=== PATIENT | female | born 2000 | race Caucasian/White ===

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

== ENCOUNTER 2019-04-20 10:05 | Inpatient (IN) | payer OTHER ==
[~2019-04-20 10:05] MED LIST: ELECTROLYTE-148 SOLN 1,000 ML IV SCH
[2019-04-20] MEDS ORDERED: AMPICILLIN - 2 GM in SODIUM CHLORIDE 100 ML IVPB ONE ×2 (10:30→14:17)
[2019-04-20 11:02] VITALS: BMI 43.9
[2019-04-20 12:17] LABS: BASO % 0.3 % (0-2.0); EOS % 0.9 % (0-4.5); HEMATOCRIT 32.2 % (32.4-45.2); HEMOGLOBIN 10.4 GM/dL (10.7-15.3); LYMPH % 8.2 % (8-40); MCH 26.3 pg (25.7-33.7); MCHC 32.2 g/dl (32.0-36.0); MEAN CELL VOLUME 81.8 fl (80-96); MEAN PLT VOLUME 8.5 fl (7.5-11.1); MONO % 5.6 % (3.8-10.2); RBC 3.94 M/mm3 (3.60-5.2); WHITE BLOOD COUNT 13.9 K/mm3 (4.0-10.0)
[2019-04-20 12:30] LABS: INR 0.99 (0.83-1.09); PROTHROMBIN TIME (PATIENT) 11.7 SEC (9.7-13.0)
[2019-04-20 12:32] LABS: ACTIVATED PTT 27.7 SECONDS (25.2-36.5)
[2019-04-20 12:35] LABS: PLATELET COUNT 319 K/MM3 (134-434)
[2019-04-20 12:41] LABS: CALCIUM 8.7 mg/dL (8.5-10.1); CREATININE 0.6 mg/dL (0.55-1.3); POTASSIUM 4.1 mmol/L (3.5-5.1)
[2019-04-20] MEDS ORDERED: OXYTOCIN 30 UNITS in 0.9% NS 30 UNIT/500 ML INFUS.BAG IVPB ONE (14:09)
[2019-04-20] MEDS ORDERED: AMPICILLIN SODIUM 1 GM VIAL ONE ×3 (14:09→22:16)
[2019-04-20] MEDS ORDERED: BUTORPHANOL TARTRATE 1 MG/ML VIAL IVPB ONE (14:17)
[2019-04-20] MEDS ORDERED: PROMETHAZINE HCL 25 MG/1 ML VIAL IVPUSH ONE (14:17)
--- NOTE | 2019-04-20 14:17 | HP ---
Past Medical History - Primary Care Physician PCP:: Catrina Marques - Admission Chief Complaint: 18yo P0 @ 39wks with clear LOF since 8:30 this am, mild ctx, no VB, +FM History of Present Illness: 1. 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 GBS pos - for Ampicillin prophylaxis 3. 3tr GCT - 146; GTT - wnl 4. Morbid obesity - 60lb weight gain, EFW - 8lb, gynecoid pelvis History Source: Patient, Medical Record Limitations to Obtaining History: No Limitations - Past Medical History Pulmonary: Yes: Other (Exercise induced reactive aiway dz) ...: 1 ...Para: 0 ...Term: 0 ...: 0 ...Spon : 0 ...Induced : 0 ...Multiple Gestation: 0 ...EDC by [facility]: 04/27/19 Infectious Disease: Yes: STD's (HSV 2 Chlamydia 2014, 2016), Other (HSV) Psych: Yes: Anxiety, Depression Musculoskeletal: Yes: Other (fractures multiple : bl wrists, R foot, R finger) - Past Surgical History Past Surgical History: Yes: Appendectomy Hx Myomectomy: No Hx Transabdominal Cerclage: No Additional Surgical History: Tear duct surgery - Smoking History Smoking history: Never smoked Have you smoked in the past 12 months: No Aproximately how many cigarettes per day: 0 - Alcohol/Substance Use Hx Alcohol Use: No Home Medications - Allergies Allergies/Adverse Reactions: Allergies Allergy/AdvReac Type Severity Reaction Status Date / Time No Known Allergies Allergy Verified 04/20/19 11:08 - Home Medications Home Medications: Ambulatory Orders Valacyclovir HCl [Valtrex] 1 tab PO BID 04/20/19 Family Disease History - Family Disease History Family History: Unremarkable Review of Systems - Review of Systems Constitutional: reports: No Symptoms Eyes: reports: No Symptoms HENT: reports: No Symptoms Neck: reports: No Symptoms Cardiovascular: reports: No Symptoms Respiratory: reports: No Symptoms Gastrointestinal: reports: No Symptoms Genitourinary: reports: Other (Leackage of fluid) Breasts: reports: No Symptoms Reported Musculoskeletal: reports: No Symptoms Integumentary: reports: No Symptoms Neurological: reports: No Symptoms Endocrine: reports: No Symptoms Hematology/Lymphatic: reports: No Symptoms Psychiatric: reports: No Symptoms Physical Exam - Maternity Vital Signs: Vital Signs Temperature 98.2 F 04/20/19 13:00 Pulse Rate 96 H 04/20/19 13:00 Respiratory Rate 18 04/20/19 13:00 Blood Pressure 123/56 L 04/20/19 13:00 O2 Sat by Pulse Oximetry (%) Constitutional: Yes: Well Nourished, No Distress, Calm Eyes: Yes: WNL, Conjunctiva Clear HENT: Yes: WNL Neck: Yes: WNL Cardiovascular: Yes: WNL, Regular Rate and Rhythm Lungs: Clear to auscultation Breast(s): Yes: WNL - Abdominal Exam/OB Fundal Height: 41 (EFW 8lb) Number of Fetuses: Single Presentation: Vertex Contractions: Yes Regularity: Irregular Intensity: Mild Monitor Mode: External Heart Rate (range): 150's Heart Rate Location: Midline Category: I Accelerations: Uniform Decelerations: None - Vaginal Exam/OB Vaginal Bleediing: No Speculum Exam: Yes (Grosly ruptured, nitrosine pos, no vulva lesions noted) Dilatation (cm): 5 Effacement (%): 80 Amniotic Membrane Status: Ruptured (clear) Nitrazine Test: Positive Amniotic Fluid: Yes: Clear Presentation: Vertex/Position Station: -1 - Physical Exam Musculoskeletal: Yes: WNL Extremities: Yes: WNL Edema: No Integumentary: Yes: WNL Deep Tendon Reflex Grade: Normal +2 ...Motor Strength: WNL Psychiatric: Yes: WNL, Alert, Oriented - Labs Lab Results: CBC, BMP PNL: Bpos/NR/RI/HIV neg/ HBsAg neg 04/20/19 12:05 04/20/19 12:05 Assessment/Plan 18yo P0 @39wks with PROM advanced cervical dilation Admit to L&D IVF, Labs, NPO GBS prophylaxis with Ampicillin Start Pitocin to augment labor likely LGA fetus, gynecoid pelvis, will monitor progress of labor
[2019-04-20] MEDS: AMPICILLIN - 1 GM in SODIUM CHLORIDE 100 ML IVPB SCH ×3 (14:24→22:15)
[2019-04-20] MEDS ORDERED: ELECTROLYTE-148 SOLN 1,000 ML IV SCH (14:30)
[2019-04-20] MEDS ORDERED: OXYTOCIN 30 UNITS in 0.9% NS 30 UNIT/500 ML INFUS.BAG IVPB SCH (14:30)
[2019-04-20] MEDS ORDERED: DEXTROSE 5%-LACTATED RINGERS 1,000 ML IV SCH (14:30)
[2019-04-20] MEDS ORDERED: AMPICILLIN - 1 GM in SODIUM CHLORIDE 100 ML IVPB SCH (18:21)
--- NOTE | 2019-04-20 20:43 | PN ---
Progress Note, Labor Vaginal Exam #1 Labor Exam Date: 04/20/19 Labor Exam Time: 20:30 Heart Rate (range): 150's Category 1 Dilatation: 6 Effacement (%): 80 Amniotic Membrane Status: Ruptured (FOrewaters ruprured) Presentation: Vertex/Position Station: -1 (Reassuring MF status Epidural offered for pain)
[2019-04-20] MEDS ORDERED: FENTANYL/BUPIVACAINE/NS/PF - PCEA - 50 ML DISP.SYRIN EP ONE ×2 (21:04→21:05)
[2019-04-20] MEDS ORDERED: NALOXONE HCL 0.4 MG/ML VIAL IVPUSH PRN (21:08)
[2019-04-20] MEDS ORDERED: LIDO 2%/EPI 1:200000 PRESRVFRE (20 ML SDVIAL) ONE (21:11)
[2019-04-20] MEDS: FENTANYL/BUPIVACAINE/NS/PF - PCEA - 50 ML DISP.SYRIN EP SCH (21:15)
[2019-04-20] MEDS ORDERED: LIDOCAINE HCL 1% PRESERVATIVE FREE - 30ML VIAL ONE (23:18)
[2019-04-20] MEDS ORDERED: OXYTOCIN 20 UNITS in 0.9% NS 20 UNIT/1,000 ML INFUS.BAG IV ONE (23:18)
--- NOTE | 2019-04-20 23:24 | PN ---
Progress Note, Labor Vaginal Exam #2 Labor Exam Date: 04/20/19 Labor Exam Time: 23:00 Heart Rate (range): 150's Dilatation: FD Effacement (%): 100 Amniotic Membrane Status: Ruptured Presentation: Vertex/Position Station: +2 Remarks: Will start 2nd stage MF status reassuring LGA fetus stepping stool in the room Shoulder precautions reviewed with the nurse
[2019-04-21] MEDS ORDERED: OXYTOCIN 20 UNITS in 0.9% NS 20 UNIT/1,000 ML INFUS.BAG IV SCH
[2019-04-21] MEDS ORDERED: WITCH HAZEL 50% (TUCKS) 40 PAD/JAR PAD TP PRN (00:18)
[2019-04-21] MEDS ORDERED: METHYLERGONOVINE MALEATE 0.2 MG/1 ML AMP IM PRN (00:18)
[2019-04-21] MEDS ORDERED: BISACODYL 10 MG SUPP.RECT RC PRN (00:18)
[2019-04-21] MEDS ORDERED: BENZOCAINE 28 GM HEMORRHOIDAL OINTMENT TP PRN (00:18)
[2019-04-21] MEDS ORDERED: BENZOCAINE 20% 57 GM BOTTLE TP PRN (00:18)
--- NOTE | 2019-04-21 00:22 | PN ---
Delivery - Delivery Vaginal Delivery: No Problems Type of Anesthesia: Local, Epidural Episiotomy/Laceration: Midline EBL (cc): 400 Delivery, Single - Stages of Labor Date 1st Stage Initiatied: 04/20/19 Date 2nd Stage Initiated: 04/20/19 Time 2nd Stage Initiated: 23:30 Date of Delivery: 04/20/19 Time of Delivery: 23:55 Date Placenta Delivered: 04/20/19 Time Placenta Delivered: 23:59 Placenta: Yes: Spontaneous - Condition of Cognos Architect/Director Check Present: No Infant Gender: Male Weight: 8 lb 12 oz Position: Left, OA - 1 Minute Total Score: 9 5 Minutes Total Score: 9 - Feeding Plan Initial Plan: Exclusive throughout hospitalization Benefits of Exclusively reinforced: Yes Remarks - Remarks Remarks: uncomplicated delivery of head and shoulders
[2019-04-21] MEDS ORDERED: D5W-LR W/ 20 UNITS OXYTOCIN 1,000 ML IV SCH ×2 (00:30→01:45)
[2019-04-21 00:44] LABS: ARTERIAL BLD GAS O2 SATURATION 21.3 % (95-98); ARTERIAL BLOOD GAS PCO2 59.2 mmHg (35-45); ARTERIAL BLOOD GAS pH 7.26 (7.35-7.45)
[2019-04-21 00:46] LABS: VENOUS PC02 43.3 mmHg (41-51); VENOUS PH 7.34 (7.31-7.41); VENOUS PO2 30.3 mmHg (30-40)
[2019-04-21 01:09] LABS: ARTERIAL BLOOD GAS PO2 16.2 mmHg (80-105)
[2019-04-21] MEDS ORDERED: IBUPROFEN 600 MG TABLET (FP) PO ONE (01:59)
[2019-04-21] MEDS ORDERED: ACETAMINOPHEN 325 MG TABLET (FP) ONE (01:59)
[2019-04-21] MEDS: IBUPROFEN 600 MG TABLET (FP) PO PRN ×4 (02:03→21:36)
[2019-04-21] MEDS: ACETAMINOPHEN 325 MG TABLET (FP) PO PRN ×4 (02:04→21:35)
[2019-04-21] MEDS: AMPICILLIN - 1 GM in SODIUM CHLORIDE 100 ML IVPB SCH (03:51)
--- NOTE | 2019-04-21 07:51 | PN ---
Post Progress Note - Subjective Subjective: Patient without acute complaints. Reports tolerating oral intake without nausea or vomiting. Ambulating without dizziness. Denies fevers or chills. Pain well controlled with oral pain medication. without difficulty. Passing flatus. Post Day: 1 Type of Delivery: Vital Signs: Vital Signs Temperature 98.1 F 04/21/19 06:00 Pulse Rate 105 H 04/21/19 06:00 Respiratory Rate 18 04/21/19 06:00 Blood Pressure 128/64 04/21/19 06:00 O2 Sat by Pulse Oximetry (%) 100 04/21/19 01:00 Breast Exam: Yes: Soft Uterus: Yes: Fundus Firm Abdomen/GI: Yes: Abdomen soft Lochia: Yes: Rubra Lochia, amount: Small Extremities: Yes: Calves non-tender Perineum: Yes: Intact Activity: Ambulating - Labs Labs: CBC WBC 13.9 K/mm3 (4.0-10.0) H 04/20/19 12:05 RBC 3.94 M/mm3 (3.60-5.2) 04/20/19 12:05 Hgb 10.4 GM/dL (10.7-15.3) L 04/20/19 12:05 Hct 32.2 % (32.4-45.2) L D 04/20/19 12:05 MCV 81.8 fl (80-96) 04/20/19 12:05 MCH 26.3 pg (25.7-33.7) D 04/20/19 12:05 MCHC 32.2 g/dl (32.0-36.0) 04/20/19 12:05 RDW 15.0 % (11.6-15.6) D 04/20/19 12:05 Plt Count 319 K/MM3 (134-434) 04/20/19 12:05 MPV 8.5 fl (7.5-11.1) 04/20/19 12:05 Absolute Neuts (auto) 11.9 K/mm3 (1.5-8.0) H 04/20/19 12:05 Neutrophils % 85.0 % (42.8-82.8) H 04/20/19 12:05 Lymphocytes % 8.2 % (8-40) D 04/20/19 12:05 Monocytes % 5.6 % (3.8-10.2) 04/20/19 12:05 Eosinophils % 0.9 % (0-4.5) 04/20/19 12:05 Basophils % 0.3 % (0-2.0) 04/20/19 12:05 Nucleated RBC % 0 % (0-0) 04/20/19 12:05 Assessment/Plan 18yo P 1 s/p Doing well VSS, Afebrile encourage ambulation follow H/H Rh positive, no need for RhoGam cont. routine care
[2019-04-21] MEDS: PRENATAL VITAMINS W/ FOLIC ACID TABLET (FP) PO SCH (09:02)
[2019-04-21] MEDS: FERROUS SO4 325 MG TABLET (FP) PO SCH ×2 (09:02→17:52)
[2019-04-21 09:50] LABS: EOS % 0.6 % (0-4.5)
[2019-04-21 10:01] LABS: BASO % 0.2 % (0-2.0); HEMATOCRIT 25.8 % (32.4-45.2); HEMOGLOBIN 8.1 GM/dL (10.7-15.3); LYMPH % 10.1 % (8-40); MCHC 31.3 g/dl (32.0-36.0); MEAN CELL VOLUME 83.2 fl (80-96); MEAN PLT VOLUME 9.3 fl (7.5-11.1); MONO % 6.8 % (3.8-10.2); NEUT % 82.3 % (42.8-82.8); RDW 14.6 % (11.6-15.6); WHITE BLOOD COUNT 11.6 K/mm3 (4.0-10.0)
[2019-04-21 10:03] LABS: PLATELET COUNT 258 K/MM3 (134-434)
[2019-04-21 12:04] LABS: COCAINE, UR NEGATIVE ng/ml (CUTOFF=300); METHADONE, UR NEGATIVE ng/ml (CUTOFF=300); OPIATES, URI NEGATIVE ng/ml (CUTOFF=300); PHENCYCLIDINE,URINE NEGATIVE ng/ml (CUTOFF=25); URINE AMPHETAMINES NEGATIVE ng/ml (CUTOFF=500); URINE BARBITURATES NEGATIVE ng/ml (CUTOFF=200); URINE BENZODIAZEPINES NEGATIVE ng/ml (CUTOFF=200)
[2019-04-22] MEDS: IBUPROFEN 600 MG TABLET (FP) PO PRN ×3 (06:10→17:53)
[2019-04-22] MEDS: ACETAMINOPHEN 325 MG TABLET (FP) PO PRN ×3 (06:10→17:54)
[2019-04-22] MEDS: FENTANYL/BUPIVACAINE/NS/PF - PCEA - 50 ML DISP.SYRIN EP SCH (07:16)
[2019-04-22 07:49] LABS: BASO % 0.3 % (0-2.0); EOS % 3.4 % (0-4.5); HEMOGLOBIN 8.1 GM/dL (10.7-15.3); LYMPH % 19.2 % (8-40); MCH 26.9 pg (25.7-33.7); MCHC 32.4 g/dl (32.0-36.0); MEAN CELL VOLUME 82.8 fl (80-96); MEAN PLT VOLUME 9.1 fl (7.5-11.1); MONO % 8.2 % (3.8-10.2); NEUT % 68.9 % (42.8-82.8); PLATELET COUNT 229 K/MM3 (134-434); RBC 3.02 M/mm3 (3.60-5.2); RDW 14.9 % (11.6-15.6); WHITE BLOOD COUNT 9.4 K/mm3 (4.0-10.0)
[2019-04-22] MEDS: FERROUS SO4 325 MG TABLET (FP) PO SCH ×2 (09:18→17:48)
[2019-04-22] MEDS: PRENATAL VITAMINS W/ FOLIC ACID TABLET (FP) PO SCH (09:18)
--- NOTE | 2019-04-22 15:10 | DS ---
Physical Exam-ZOO DIRECTOR Vital Signs: Vital Signs Temperature 98.1 F 04/22/19 10:00 Pulse Rate 100 H 04/22/19 10:00 Respiratory Rate 20 04/22/19 10:00 Blood Pressure 120/77 04/22/19 10:00 O2 Sat by Pulse Oximetry (%) 100 04/21/19 01:00 Constitutional: Yes: Well Nourished, No Distress, Calm Labs: CBC, BMP 04/22/19 06:54 04/20/19 12:05 Delivery - Delivery Vaginal Delivery: No Problems Type of Anesthesia: Local, Epidural Episiotomy/Laceration: Midline EBL (cc): 400 Delivery, Single - Stages of Labor Date 1st Stage Initiatied: 04/21/19 Time 1st Stage Initiated: 08:30 Date 2nd Stage Initiated: 04/21/19 Time 2nd Stage Initiated: 23:30 Date of Delivery: 04/21/19 Time of Delivery: 23:55 Time Placenta Delivered: 23:59 Placenta: Yes: Spontaneous - Condition of Mixer Runner/Booky Present: No Gender: Male Weight: 8 lb 12 oz Position: Left, OA Total Hours ROM (Hrs/Mins): 15h 25m - 1 Minute Total Score: 9 5 Minutes Total Score: 9 - Feeding Plan Initial Plan: Exclusive throughout hospitalization Benefits of Exclusively reinforced: Yes Discharge Summary Reason For Visit: LABOR ADMIT Condition: Good - Instructions Diet, Activity, Other Instructions: Physical activity Resume your normal everyday activity as tolerated no heavy lifting or exercise until seen by your surgeon. You may walk unlimited aminah of and climb stairs. You may resume driving the car when you feel safe and comfortable behind the wheel. No sexual activity as instructed. Wound care If you have a bandage, leave it on, and keep dry for 48-72 hours. After that time discard the outer bandage. If they are tapes on the skin under the out of bandage leave them in place. They will peel off in the next 7 to 10 days. Do Not Peel them off. You may shower the day after surgery. If there are tapes present on the skin, you may shower over them. Diet There are no dietary restrictions. Eat healthy, high-fiber foods. Drink 6 to 8 glasses of liquid each day. This will assist in keeping your bowels are regular. Pain management You may take Tylenol or acetaminophen or Ibuprofen (for example, Motrin, Advil etc.) from my pain prescription medication is ordered should be taken as prescribed for moderate to severe pain. Call MD for any of the following: Severe pain not relieved by medication Fever of 101 or higher Excessive bleeding or drainage on dressing Inability to urinate Referrals: Shaun Warner MD [Staff Physician] - Disposition: HOME - Home Medications Comprehensive Discharge Medication List: Ambulatory Orders Valacyclovir HCl [Valtrex] 1 tab PO BID 04/20/19 Ibuprofen [Motrin -] 600 mg PO QID #28 tablet 04/22/19
--- NOTE | 2019-04-22 19:35 | DS ---
Physical Exam-RESEARCH ANIMAL ATTENDANT Vital Signs: Vital Signs Temperature 98.1 F 04/22/19 10:00 Pulse Rate 100 H 04/22/19 10:00 Respiratory Rate 20 04/22/19 10:00 Blood Pressure 120/77 04/22/19 10:00 O2 Sat by Pulse Oximetry (%) 100 04/21/19 01:00 Constitutional: Yes: Well Nourished, No Distress, Calm Eyes: Yes: WNL HENT: Yes: WNL, Atraumatic, Normocephalic Neck: Yes: WNL, Supple, Trachea Midline Cardiovascular: Yes: WNL, Regular Rate and Rhythm Respiratory: Yes: WNL, Regular, CTA Bilaterally Gastrointestinal: Yes: WNL, Normal Bowel Sounds, Soft ...Rectal Exam: Yes: WNL Renal/: Yes: WNL Pelvis: Yes: WNL External Genitalia: Yes: Normal Vaginal Exam: Yes: Normal Cervix: Yes: Normal Uterus: Yes: Normal ....Post : Yes: Uterus firm, Uterus non-tender Breast(s): Yes: WNL Musculoskeletal: Yes: WNL Extremities: Yes: WNL Edema: No Integumentary: Yes: WNL Neurological: Yes: WNL, Alert, Oriented ...Motor Strength: WNL Psychiatric: Yes: WNL, Alert, Oriented Labs: CBC, BMP 04/22/19 06:54 04/20/19 12:05 Delivery - Delivery Vaginal Delivery: No Problems Type of Anesthesia: Local, Epidural Episiotomy/Laceration: Midline EBL (cc): 400 Delivery, Single - Stages of Labor Date 1st Stage Initiatied: 04/20/19 Time 1st Stage Initiated: 08:30 Date 2nd Stage Initiated: 04/20/19 Time 2nd Stage Initiated: 23:30 Date of Delivery: 04/20/19 Time of Delivery: 23:55 Date Placenta Delivered: 04/20/19 Time Placenta Delivered: 23:59 Placenta: Yes: Spontaneous - Condition of Manager Purchasing/Mortgage Loan Officer Present: No Infant Gender: Male Weight: 8 lb 12 oz Position: Left, OA Total Hours ROM (Hrs/Mins): 15h 25m - 1 Minute Total Score: 9 5 Minutes Total Score: 9 - Feeding Plan Initial Plan: Exclusive throughout hospitalization Benefits of Exclusively reinforced: Yes Remarks - Remarks Remarks: uncomplicated delivery of head and shoulders Discharge Summary Reason For Visit: LABOR ADMIT Condition: Good - Instructions Diet, Activity, Other Instructions: Physical activity Resume your normal everyday activity as tolerated no heavy lifting or exercise until seen by your surgeon. You may walk unlimited aminah of and climb stairs. You may resume driving the car when you feel safe and comfortable behind the wheel. No sexual activity as instructed. Wound care If you have a bandage, leave it on, and keep dry for 48-72 hours. After that time discard the outer bandage. If they are tapes on the skin under the out of bandage leave them in place. They will peel off in the next 7 to 10 days. Do Not Peel them off. You may shower the day after surgery. If there are tapes present on the skin, you may shower over them. Diet There are no dietary restrictions. Eat healthy, high-fiber foods. Drink 6 to 8 glasses of liquid each day. This will assist in keeping your bowels are regular. Pain management You may take Tylenol or acetaminophen or Ibuprofen (for example, Motrin, Advil etc.) from my pain prescription medication is ordered should be taken as prescribed for moderate to severe pain. Call MD for any of the following: Severe pain not relieved by medication Fever of 101 or higher Excessive bleeding or drainage on dressing Inability to urinate Referrals: Shaun Warner MD [Staff Physician] - Disposition: HOME - Home Medications Comprehensive Discharge Medication List: Ambulatory Orders Valacyclovir HCl [Valtrex] 1 tab PO BID 04/20/19 Ibuprofen [Motrin -] 600 mg PO QID #28 tablet 04/22/19
[2019-04-22 20:40] VITALS: BP 120/91; PULSE 103; TEMP 97.9
[2019-04-22] MEDS ORDERED: SENNOSIDES/DOCUSATE COMBO (SENNA PLUS) TABLET (UD) PO PRN (22:00)
== END 2019-04-22 21:30 | disposition home or self-care (01) | DRG 807 ==
LOC: JLDR 10:05 → J3W 04-21 02:30
PROVIDERS: ADMIT Obstetrics & Gynecology; ATTEND Obstetrics & Gynecology
PROC: 10E0XZZ Delivery of Products of Conception, External Approach (ICD-10-PCS; principal; 2019-04-20)
DX: O99.824 Streptococcus B carrier state complicating childbirth (principal); Z37.0 Single live birth; O42.90 Premature rupture of membranes, unspecified as to length of time between rupture and onset of labor, unspecified weeks of gestation; O99.214 Obesity complicating childbirth; Z3A.39 39 weeks gestation of pregnancy
CPT/HCPCS: 36415; 36600; 59409; 80048; 80307; 82803; 85025; 85610; 85730; 86593; 86850; 86900; 86901

== ENCOUNTER 2019-11-18 19:12 | Emergency (ER) | payer OTHER ==
[2019-11-18] MEDS ORDERED: SODIUM CHLORIDE 0.9% 500 ML INFUS.BAG IV ONE ×2 (19:18→21:40)
[2019-11-18] MEDS ORDERED: ONDANSETRON 4 MG/2 ML VIAL IVPUSH ONE ×2 (19:19→20:41)
[2019-11-18 19:26] VITALS: BP 139/89; PULSE 100; TEMP 97.7; BMI 41.9
[2019-11-18] MEDS ORDERED: ONDANSETRON 4 MG/2 ML VIAL ONE ×2 (19:34→20:38)
--- NOTE | 2019-11-18 22:31 | PDOC ---
Documentation entered by Cammie West SCRIBE, acting as scribe for Benito Ambrocio MD. Benito Ambrocio MD: This documentation has been prepared by the scribe, Cammie West SCRIBE, under my direction and personally reviewed by me in its entirety. I confirm that the documentation accurately reflects all work, treatment, procedures, and medical decision making performed by me. History of Present Illness - General Chief Complaint: Nausea/Vomiting Stated Complaint: FOOD POISONING/VOMITING SINCE 2 PM History Source: Patient Exam Limitations: No Limitations - History of Present Illness Initial Comments: 11/18/19 19:35 The patient is a 18-year-old female with no significant past medical history who presents to the emergency department with vomiting and diarrhea. The patient reports she had a bagel with cream cheese, moura, hashbrown, and coffee for breakfast this morning at 10:00 am. The patient reports around 2:00 pm she had an onset of vomiting and 1 episode of diarrhea. Denies known sick contact. Denies recent travel. The patient states she was her usual self prior to the symptom onset. Denies breast feeding her baby. Past History - Past Medical History Allergies/Adverse Reactions: Allergies Allergy/AdvReac Type Severity Reaction Status Date / Time No Known Allergies Allergy Verified 11/18/19 19:15 Home Medications: Ambulatory Orders Ondansetron HCl [Zofran] 4 mg PO TID PRN #12 tablet 11/18/19 Asthma: Yes - Immunization History Immunization Up to Date: Yes - Psycho Social/Smoking Cessation Hx Smoking Status: No Smoking History: Never smoked Have you smoked in the past 12 months: No Number of Cigarettes Smoked Daily: 0 Hx Alcohol Use: No Drug/Substance Use Hx: No Substance Use Type: None Review of Systems - Review of Systems Able to Perform ROS?: Yes Comments:: 11/18/19 19:36 Constitutional - Pt denies Fever, Chills, weakness, HEENT: denies vision changes, sore throat Respiratory: Denies cough, sob, hemoptysis Cardiac: denies chest pain, palpitations, light headedness, leg swelling Abd/GI: +vomiting and diarrhea. Denies abdominal pain or constipation. : denies dysuria, frequency, discharge Musculskelatal - denies back pain, joint swelling skin - denies bruising, erythema, rash neurological: denies headache, numbness, focal weakness, tingling, ataxia, weakness hematologic: denies anemia, easy bruising, easy bleeding *Physical Exam - Vital Signs Last Vital Signs Temp Pulse Resp BP Pulse Ox 97.7 F 100 H 20 139/89 100 11/18/19 19:17 11/18/19 19:17 11/18/19 19:17 11/18/19 19:17 11/18/19 19:17 - Physical Exam 11/18/19 19:37 CONSTITUTIONAL: Well-appearing; well-nourished; in no apparent distress HEAD: Normocephalic; atraumatic EYES: PERRL; EOM intact ENMT: External appears normal NECK: Supple; non-tender CARD: Normal S1, S2; no murmurs, rubs, or gallops RESP: breath sounds clear and equal bilaterally; no wheezes, rhonchi, or rales ABD: Soft, non-distended; non-tender EXT: Normal ROM in all four extremities; non-tender SKIN: Warm, dry, no rash NEURO: No focal neurological deficiencies. ED Treatment Course - Medications Given in the ED: ED Medications Discontinued Medications Generic Name Dose Route Start Last Admin Trade Name Freq PRN Reason Stop Dose Admin Ondansetron HCl 4 mg 11/18/19 19:19 11/18/19 19:33 Zofran Injection IVPUSH 11/18/19 19:20 4 mg ONCE ONE Administration Ondansetron HCl 4 mg 11/18/19 20:41 11/18/19 20:46 Zofran Injection IVPUSH 11/18/19 20:42 4 mg ONCE ONE Administration Sodium Chloride 2,000 ml 11/18/19 19:18 11/18/19 19:33 Normal Saline - IV 11/18/19 19:19 2,000 ml ONCE ONE Administration Sodium Chloride 1,000 ml 11/18/19 21:40 11/18/19 21:51 Normal Saline - IV 11/18/19 21:41 1,000 ml ONCE ONE Administration Medical Decision Making - Medical Decision Making 11/19/19 06:46 AGE/ food poisoning symptomatically improved after 3l NS + anti-emetics continue anti emetics CATINA diet Discharge - Discharge Information Problems reviewed: Yes Clinical Impression/Diagnosis: Food poisoning Condition: Stable Disposition: HOME - Admission No - Additional Discharge Information Prescriptions: Ondansetron HCl [Zofran] 4 mg PO TID PRN #12 tablet PRN Reason: Nausea - Follow up/Referral - Patient Discharge Instructions Patient Printed Discharge Instructions: DI for Food Poisoning - Post Discharge Activity
== END 2019-11-18 23:41 | disposition home or self-care (01) ==
LOC: FER 19:12
PROC: 3E033GC Introduction of Other Therapeutic Substance into Peripheral Vein, Percutaneous Approach (ICD-10-PCS; principal; 2019-11-18)
PROC: 3E0337Z Introduction of Electrolytic and Water Balance Substance into Peripheral Vein, Percutaneous Approach (ICD-10-PCS; 2019-11-18)
DX: A05.9 Bacterial foodborne intoxication, unspecified (principal)
CPT/HCPCS: 81003; 84703; 99282-25

== ENCOUNTER 2020-04-21 11:28 | Emergency (ER) | payer OTHER ==
[2020-04-21 11:58] VITALS: TEMP 97.7; BMI 40.3
[2020-04-21] MEDS ORDERED: KETOROLAC TROMETHAMINE 30 MG/1 ML VIAL IM ONE (12:32)
[2020-04-21] MEDS ORDERED: LIDOCAINE 5% TOPICAL PATCH TP ONE (12:33)
[2020-04-21] MEDS ORDERED: METHOCARBAMOL 500 MG TABLET PO ONE (12:40)
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
[2020-04-21] MEDS ORDERED: METHOCARBAMOL 500 MG TABLET ONE (13:11)
[2020-04-21] MEDS ORDERED: LIDOCAINE 5% TOPICAL PATCH ONE (13:12)
[2020-04-21] MEDS ORDERED: KETOROLAC TROMETHAMINE 30 MG/1 ML VIAL ONE (13:12)
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
[2020-04-21] MEDS ORDERED: DIPHTH,PERTUSS(ACELL),TET 0.5 ML DISP.SYRIN IM ONE ×2 (13:24→13:48)
[2020-04-21] MEDS ORDERED: BACITRACIN 15 GM TUBE TOPICAL OINTMENT TP ONE (13:43)
[2020-04-21] MEDS ORDERED: BACITRACIN 0.9 GM PACKET ONE (13:48)
[2020-04-21 14:45] VITALS: BP 146/90; PULSE 74
[2020-04-21] MEDS ORDERED: LIDOCAINE PATCH REMOVAL MC SCH (22:00)
== END 2020-04-21 14:45 | disposition home or self-care (01) ==
LOC: JER 11:28 → SUPCPDRO 11:28 → JER 14:45
PROC: 3E0234Z Introduction of Serum, Toxoid and Vaccine into Muscle, Percutaneous Approach (ICD-10-PCS; principal; 2020-04-21)
PROC: 3E0233Z Introduction of Anti-inflammatory into Muscle, Percutaneous Approach (ICD-10-PCS; 2020-04-21)
DX: M54.2 Cervicalgia (principal); M25.532 Pain in left wrist; R10.30 Lower abdominal pain, unspecified; V89.2XXA Person injured in unspecified motor-vehicle accident, traffic, initial encounter
CPT/HCPCS: 73110-TC-RT-FY; 73130-TC-RT-FY; 84703; 90715; 99285-25

== ENCOUNTER 2020-12-29 11:58 | Emergency (ER) | payer OTHER ==
[2020-12-29 12:12] VITALS: BP 131/80; PULSE 71; TEMP 98.3; BMI 38.7
== END 2020-12-29 13:44 | disposition home or self-care (01) ==
LOC: JERFT 11:58
DX: S92.901A Unspecified fracture of right foot, initial encounter for closed fracture (principal)
CPT/HCPCS: 73610-TC-RT-FY; 73630-TC-RT-FY; 99283-25

== ENCOUNTER 2022-02-21 00:03 | Emergency (ER) | payer BC, OTHER ==
[2022-02-21 00:28] VITALS: BP 137/98; PULSE 83; TEMP 98.5; BMI 42.3
[2022-02-21] MEDS ORDERED: FAMOTIDINE 20 MG/50 ML IVPB 20 MG/50 ML MG IVPB ONE (01:05)
[2022-02-21] MEDS ORDERED: ONDANSETRON 4 MG/2 ML VIAL IVPUSH ONE (01:05)
[2022-02-21] MEDS ORDERED: SODIUM CHLORIDE 0.9% 500 ML INFUS.BAG IV ONE (01:06)
[2022-02-21] MEDS ORDERED: ONDANSETRON 4 MG/2 ML VIAL ONE (01:25)
[2022-02-21] MEDS ORDERED: FAMOTIDINE 10 MG/ML VIAL IVPB ONE (01:26)
[2022-02-21] MEDS ORDERED: MAG HYDROX/AL HYDROX/SIMETH 30 ML UNIT-DOSE CUP PO ONE (01:27)
[2022-02-21 01:28] LABS: BASO % 0.3 % (0-2.0); EOS % 0.3 % (0-4.5); HEMOGLOBIN 13.4 GM/dL (10.7-15.3); LYMPH % 12.2 % (8-40); MCH 29.2 pg (25.7-33.7); MCHC 33.5 g/dl (32.0-36.0); MEAN CELL VOLUME 87.2 fl (80-96); MEAN PLT VOLUME 7.8 fl (7.5-11.1); NEUT % 83.2 % (42.8-82.8); PLATELET COUNT 338 10^3/uL (134-434); RBC 4.58 M/mm3 (3.60-5.2); RDW 13.2 % (11.6-15.6); WHITE BLOOD COUNT 12.7 K/mm3 (4.0-10.0)
[2022-02-21] MEDS ORDERED: MAG HYDROX/AL HYDROX/SIMETH 30 ML UNIT-DOSE CUP ONE (01:40)
[2022-02-21 01:49] LABS: ALBUMIN 3.9 g/dl (3.4-5.0); CALCIUM 9.2 mg/dL (8.5-10.1)
[2022-02-21 01:50] LABS: BLOOD UREA NITROGEN 10.6 mg/dL (7-18)
[2022-02-21 01:52] LABS: CREATININE 0.7 mg/dL (0.55-1.3)
[2022-02-21 01:54] LABS: BILIRUBIN,TOTAL 0.4 mg/dL (0.2-1); TOT PROT 7.5 g/dl (6.4-8.2)
== END 2022-02-21 03:22 | disposition home or self-care (01) ==
LOC: JER 00:03
PROC: 3E033GC Introduction of Other Therapeutic Substance into Peripheral Vein, Percutaneous Approach (ICD-10-PCS; principal; 2022-02-21)
PROC: 3E033GC Introduction of Other Therapeutic Substance into Peripheral Vein, Percutaneous Approach (ICD-10-PCS; 2022-02-21)
DX: R11.2 Nausea with vomiting, unspecified (principal)
CPT/HCPCS: 36415; 80053; 83690; 84703; 85025; 99284-25

== ENCOUNTER 2022-03-01 23:29 | Emergency (ER) | payer BC ==
[2022-03-01 23:39] VITALS: BP 138/65; PULSE 94; TEMP 98.5; BMI 40.7
[2022-03-01] MEDS ORDERED: IBUPROFEN 400 MG TABLET (FP) PO ONE ×2 (23:44→23:54)
== END 2022-03-02 01:00 | disposition home or self-care (01) ==
LOC: FER 23:29
DX: S93.402A Sprain of unspecified ligament of left ankle, initial encounter (principal); X50.0XXA Overexertion from strenuous movement or load, initial encounter; W10.1XXA Fall (on)(from) sidewalk curb, initial encounter
CPT/HCPCS: 73610-TC-LT-FY; 73630-TC-LT; 99283-25

== ENCOUNTER 2023-11-12 13:55 | Emergency (ER) | payer BC ==
[2023-11-12 14:00] VITALS: RESP 18; BMI 34.4
[2023-11-12] MEDS ORDERED: ONDANSETRON *ODT* 4 MG TABLET SL ONE ×2 (14:25→16:27)
[2023-11-12 16:20] LABS: URINE APPEARANCE CLEAR; URINE BILIRUBIN NEGATIVE (NEGATIVE); URINE COLOR YELLOW; URINE GLUCOSE (UA) NEGATIVE (NEGATIVE); URINE KETONE TRACE (NEGATIVE); URINE LEUK ESTERASE NEGATIVE (NEGATIVE); URINE NITRITE NEGATIVE (NEGATIVE); URINE PROTEIN TRACE (NEGATIVE); URINE UROBILINOGEN 0.2 mg/dL (0.2-1.0)
[2023-11-12] MEDS ORDERED: ONDANSETRON *ODT* 4 MG TABLET ONE (16:35)
[2023-11-12 18:07] VITALS: BP 122/78; PULSE 79; TEMP 98.6
== END 2023-11-12 18:05 | disposition home or self-care (01) ==
LOC: JER 13:55
DX: R11.2 Nausea with vomiting, unspecified (principal); K29.20 Alcoholic gastritis without bleeding
CPT/HCPCS: 81003; 84703; 87086; 99283-25; Q0162

== ENCOUNTER 2023-12-13 14:55 | Emergency (ER) | payer BC ==
[2023-12-13 15:15] VITALS: RESP 18; BMI 36.9
[2023-12-13 17:21] LABS: EPI CELLS 21 /uL (0-25.1); HCG,QUALITATIVE URINE Negative; HYALINE CASTS 0 /uL (0-3.1); URINE APPEARANCE CLEAR; URINE BACTERIA 355 /uL (0-1359); URINE BILIRUBIN NEGATIVE (NEGATIVE); URINE COLOR YELLOW; URINE GLUCOSE (UA) NEGATIVE (NEGATIVE); URINE KETONE NEGATIVE (NEGATIVE); URINE LEUK ESTERASE TRACE (NEGATIVE); URINE NITRITE NEGATIVE (NEGATIVE); URINE PROTEIN NEGATIVE (NEGATIVE); URINE RBC 12 /uL (0-23.9); URINE UROBILINOGEN 0.2 mg/dL (0.2-1.0); URINE WBC 12 /uL (0-25.8)
[2023-12-13] MEDS ORDERED: ACETAMINOPHEN INJECTION 100 ML IVPB ONE ×2 (18:01→18:05)
[2023-12-13] MEDS ORDERED: METOCLOPRAMIDE HCL INJECTION 10 MG/2 ML VIAL ONE (18:02)
[2023-12-13] MEDS: ACETAMINOPHEN 1000 MG/100 ML BAG IVPB ONE (18:32)
[2023-12-13] MEDS: SODIUM CHLORIDE 1,000 ML IV STA (18:32)
[2023-12-13] MEDS: METOCLOPRAMIDE HCL INJECTION 10 MG/2 ML VIAL IVPUSH ONE (18:33)
[2023-12-13 18:47] LABS: BASO % 0.5 % (0-2.0); EOS % 1.7 % (0-4.5); HEMATOCRIT 37.9 % (32.4-45.2); HEMOGLOBIN 12.8 GM/dL (10.7-15.3); MCH 29.1 pg (25.7-33.7); MCHC 33.7 g/dl (32.0-36.0); MEAN CELL VOLUME 86.4 fl (80-96); MONO % 6.9 % (3.8-10.2); NEUT % 72.9 % (42.8-82.8); PLATELET COUNT 332 10^3/uL (134-434); RBC 4.39 M/mm3 (3.60-5.2); RDW 12.7 % (11.6-15.6); WHITE BLOOD COUNT 9.6 K/mm3 (4.0-10.0)
[2023-12-13 19:06] LABS: POTASSIUM 3.9 mmol/L (3.5-5.1)
[2023-12-13 19:08] LABS: BLOOD UREA NITROGEN 12.4 mg/dL (7-18)
[2023-12-13 19:09] LABS: ALBUMIN 3.5 g/dl (3.4-5.0); MAGNESIUM 1.6 mg/dL (1.8-2.4)
[2023-12-13 19:12] LABS: CREATININE 0.6 mg/dL (0.55-1.3)
[2023-12-13 19:13] LABS: BILIRUBIN,TOTAL 0.5 mg/dL (0.2-1); TOT PROT 6.8 g/dl (6.4-8.2)
[2023-12-13 19:40] VITALS: BP 116/73; PULSE 72; TEMP 98.4
[2023-12-13] MEDS ORDERED: MAGNESIUM SULFATE IN WATER 2 GM/50 ML IVPB IVPB ONE (20:15)
[2023-12-13] MEDS: MAGNESIUM SULF 50% (8.12 MEQ/2 ML-1 GM VIAL) IVPB ONE (20:19)
== END 2023-12-13 21:00 | disposition home or self-care (01) ==
LOC: JER 14:55
PROC: 3E033NZ Introduction of Analgesics, Hypnotics, Sedatives into Peripheral Vein, Percutaneous Approach (ICD-10-PCS; principal; 2023-12-13)
PROC: 3E033GC Introduction of Other Therapeutic Substance into Peripheral Vein, Percutaneous Approach (ICD-10-PCS; 2023-12-13)
PROC: 3E033GC Introduction of Other Therapeutic Substance into Peripheral Vein, Percutaneous Approach (ICD-10-PCS; 2023-12-13)
PROC: 3E0337Z Introduction of Electrolytic and Water Balance Substance into Peripheral Vein, Percutaneous Approach (ICD-10-PCS; 2023-12-13)
DX: R51.9 Headache, unspecified (principal); E83.42 Hypomagnesemia; R42 Dizziness and giddiness
CPT/HCPCS: 36415; 70450-TC; 80053; 81003; 83735; 84703; 85025; 87086; 99285-25; J0131